=== PATIENT | male | born 2000 | race Caucasian/White ===

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

== ENCOUNTER 2023-06-16 08:22 | Emergency (ER) | payer BC ==
[2023-06-16 08:32] VITALS: BP 147/75; PULSE 88; RESP 18; TEMP 98.4; BMI 40.4
[2023-06-16] MEDS ORDERED: RABIES VACCINE (PCEC)/PF 2.5 UNIT/VIAL IM ONE ×2 (08:43→08:53)
[2023-06-16] MEDS ORDERED: RABIES IMMUNE GLOBULIN 300 UNITS/1 ML VIAL IM ONE (08:43)
== END 2023-06-16 09:10 | disposition home or self-care (01) ==
LOC: FER 08:22
PROC: 3E023GC Introduction of Other Therapeutic Substance into Muscle, Percutaneous Approach (ICD-10-PCS; principal; 2023-06-16)
PROC: 3E0234Z Introduction of Serum, Toxoid and Vaccine into Muscle, Percutaneous Approach (ICD-10-PCS; 2023-06-16)
DX: Z20.3 Contact with and (suspected) exposure to rabies (principal)
CPT/HCPCS: 90375; 90675; 99284-25

== ENCOUNTER 2023-06-19 11:40 | Emergency (ER) | payer BC ==
[2023-06-19 11:52] VITALS: BP 141/71; PULSE 92; RESP 16; TEMP 97.5; BMI 43.4
[2023-06-19] MEDS ORDERED: RABIES VACCINE (PCEC)/PF 2.5 UNIT/VIAL IM ONE (11:53)
[2023-06-19] MEDS: RABIES VACCINE (PCEC)/PF 2.5 UNIT/VIAL IM ONE (12:03)
== END 2023-06-19 12:05 | disposition home or self-care (01) ==
LOC: FER 11:40
PROC: 3E0234Z Introduction of Serum, Toxoid and Vaccine into Muscle, Percutaneous Approach (ICD-10-PCS; principal; 2023-06-19)
DX: Z23 Encounter for immunization (principal)
CPT/HCPCS: 90675; 99281-25

== ENCOUNTER 2023-06-24 11:40 | Emergency (ER) | payer BC ==
[2023-06-24] MEDS ORDERED: RABIES VACCINE (PCEC)/PF 2.5 UNIT/VIAL IM ONE (11:48)
[2023-06-24] MEDS: RABIES VACCINE (PCEC)/PF 2.5 UNIT/VIAL IM ONE (12:10)
[2023-06-24 12:14] VITALS: BP 120/84; PULSE 96; RESP 16; TEMP 98.7; BMI 35.2
== END 2023-06-24 12:15 | disposition home or self-care (01) ==
LOC: FER 11:40
PROC: 3E0234Z Introduction of Serum, Toxoid and Vaccine into Muscle, Percutaneous Approach (ICD-10-PCS; principal; 2023-06-24)
DX: Z20.3 Contact with and (suspected) exposure to rabies (principal)
CPT/HCPCS: 90675; 99281-25

== ENCOUNTER 2023-07-01 13:25 | Emergency (ER) | payer BC ==
[2023-07-01] MEDS ORDERED: RABIES VACCINE (PCEC)/PF 2.5 UNIT/VIAL IM ONE (13:38)
[2023-07-01 13:39] VITALS: BP 140/70; PULSE 70; RESP 16; TEMP 98; BMI 34.9
[2023-07-01] MEDS: RABIES VACCINE (PCEC)/PF 2.5 UNIT/VIAL IM ONE (13:44)
== END 2023-07-01 13:50 | disposition home or self-care (01) ==
LOC: FER 13:25
PROC: 3E0234Z Introduction of Serum, Toxoid and Vaccine into Muscle, Percutaneous Approach (ICD-10-PCS; principal; 2023-07-01)
DX: Z29.14 Encounter for prophylactic rabies immune globulin (principal)
CPT/HCPCS: 90675; 99281-25